=== PATIENT | male | born 1960 | race Caucasian/White ===

== ENCOUNTER 2017-01-17 13:54 | Inpatient (IN) | payer OTHER ==
[~2017-01-17] VITALS: Ht 175.2 cm; Wt 90.9 kg
[~2017-01-17 13:54] MED LIST: HYDROXYZINE PAM50 MG PO; ONDANSETRON HYDR4 M1 PO; PRILOSEC20 MG PO; THERA1 TAB PO; TYLENOL500 MG PO; VITAMIN B-11 TAB PO
[2017-01-17 15:44] VITALS: BP 148/97
--- NOTE | 2017-01-17 16:00 | NUR ---
A 56, admitted to 5E, under the services of SUJEY Barbosa DO with a diagnosis of ALCOHOL WITHDRAWAL. Chief complaint is ALCOHOL WITHDRAWAL. Patient arrived via wheel chair from [place]. Monitor applied. Initial assessment completed. Vital signs taken and recorded. SUJEY BARBOSA DO notified of admission to the unit. Orders received. See assessment for past medical history, medications and allergies. Patient and/or family oriented to unit. [address] visitation policy reviewed. Clothing/patient valuable form completed. MARYANA BROWER
[2017-01-17] MEDS ORDERED: COZAAR100 MG PO (16:24)
[2017-01-17] MEDS ORDERED: NORVASC5 MG PO (16:24)
[2017-01-17 17:24] LABS: BASO % 0.6 % (0.0-1.0); EOS # 0.1 10*3/uL (0.0-0.4); EOS % 2.1 % (1.0-4.0); HEMATOCRIT 39.4 % (42.0-52.0); HEMOGLOBIN 13.6 g/dl (14.0-18.0); LYMPH # 2.6 10*3/uL (1.3-4.4); MEAN CELL VOLUME 88.3 fl (80.0-94.0); MEAN CORPUSCULAR HGB 30.5 pg (27.0-31.0); MEAN CORPUSCULAR HGB CONC 34.5 g/dl (33.0-37.0); MONO # 0.4 10*3/uL (0.1-1.0); MONO % 6.8 % (3.0-9.0); NEUT % 48.2 % (47.0-73.0); PLATELET COUNT AUTOMATED 298 10*3/uL (130-400); RED BLOOD COUNT 4.46 10*6/uL (4.50-5.90); RED CELL DISTRI WIDTH 12.9 % (0-14.5); WHITE BLOOD COUNT 6.3 10*3/uL (4.8-10.8)
[2017-01-17 17:31] LABS: INTERNATIONAL NORM RATIO 0.9 (2.0-3.5)
[2017-01-17 17:39] LABS: ALBUMIN 3.8 gm/dl (3.1-4.5); ALKALINE PHOSPHATASE 75 U/L (45-117); BUN 7 mg/dl (7-24); CHLORIDE 96 mmol/L (98-107); CREATININE 0.77 mg/dL (0.70-1.30); POTASSIUM 4.2 mmol/L (3.5-5.1); SGOT/AST 53 IU/L (3-35); SGPT/ALT 62 U/L (12-78); SODIUM 131 mmol/L (136-145); TOTAL PROTEIN 7.8 gm/dL (6.4-8.2)
[2017-01-17 17:45] LABS: BILIRUBIN NEGATIVE (NEGATIVE); BLOOD NEGATIVE (NEGATIVE); CLARITY CLEAR (CLEAR); COLOR YELLOW (YELLOW); GLUCOSE NEGATIVE (NEGATIVE); KETONE NEGATIVE (NEGATIVE); LEUKO ESTERASE NEGATIVE (NEGATIVE); NITRITE NEGATIVE (NEGATIVE); SPECIFIC GRAVITY <= 1.005 (1.005-1.030); UROBILINOGEN 0.2 E.U./dl (0.2-1.0)
[2017-01-17 17:53] LABS: URINE AMPHETAMINES < 1000 (1000ng/ml); URINE BARBITURATES < 200 (200ng/ml); URINE BENZODIAZEPINES < 200 (200ng/ml); URINE CANNABINOIDS (THC) < 50 (50ng/ml); URINE COCAINE < 300 (300ng/ml); URINE METHADONE < 300 (300ng/ml); URINE OPIATES < 300 (300ng/ml)
[2017-01-17 18:00] LABS: URINE PHENCYCLIDINE < 25 (25ng/ml)
[2017-01-17 18:04] LABS: EPITHELIAL CELLS 0-2; WBC 0-2 wbc/hpf (0-5)
--- NOTE | 2017-01-17 21:01 | NUR ---
PATIENT MEDICATED WITH ZOFRAN FOR COMPLAINTS OF NAUSEA. WILL MONITOR FOR EFFECTIVENESS. CALL LIGHT IN REACH.
[2017-01-17 21:41] VITALS: BP 145/89
--- NOTE | 2017-01-17 22:54 | NUR ---
MEDICATED WITH ATIVAN 2MG IV FOR COMPLAINTS OF TREMORS. WILL MONITOR FOR EFFECTIVENESS. ZOFRAN FROM EARLIER EFFECTIVE AT THIS TIME. WILL CONTINUE TO MONITOR. CALL LIGHT IN REACH.
--- NOTE | 2017-01-17 23:30 | NUR ---
ATIVAN EFFECTIVE AT THIS TIME.
[2017-01-18] VITALS: BP 138/69
--- NOTE | 2017-01-18 06:29 | NUR ---
MEDICATED WITH ZOFRAN FOR COMPLAINTS OF NAUSEA AND ATIVAN 2MG FOR COMPLAINTS OF TREMORS. WILL MONITOR FOR EFFECTIVENESS. CALL LIGHT IN REACH.
[2017-01-18 08:00] VITALS: BP 138/92
--- NOTE | 2017-01-18 08:37 | NUR ---
Medicated with vistaril per prn order for complaints of anxiety.
--- NOTE | 2017-01-18 08:55 | NUR ---
Dr. Husain notified that pt has home meds for HTN that were not continued on admission.
--- NOTE | 2017-01-18 09:30 | NUR ---
States that vistaril effective.
--- NOTE | 2017-01-18 12:48 | NUR ---
Tylenol and bentyl given per prn order for complaints of back discomfort and abdominal cramping.
--- NOTE | 2017-01-18 13:19 | NUR ---
States medication given ealier was effective but states that he is experiencing tremors and the shakes. Tremors noted. Medicated with IV ativan at this time.
--- NOTE | 2017-01-18 14:15 | NUR ---
States that iv ativan effective.
[2017-01-18 16:00] VITALS: BP 141/95
--- NOTE | 2017-01-18 16:12 | NUR ---
D/C PLAN: PATIENT HAS AN APPOINTMENT WITH [facility] IN [place] FOR THE VIVITROL SHOT. PATIENT AGREES AND UNDERSTANDS HIS AFTERCARE PLAN. PATIENT WAS GIVEN A COPY OF HIS REFERRAL SHEET WITH APPOINTMENT ALONG WITH HIS [place] DISCHARGE PACKET. CORKY CROSS B.A. ORTHOPEDICS NURSE
--- NOTE | 2017-01-18 19:29 | NUR ---
BENTYL GIVEN FOR COMPLAINTS OF ABDOMINAL CRAMPING. WILL MONITOR FOR EFFECTIVENESS.
[2017-01-18 20:00] VITALS: BP 133/85
--- NOTE | 2017-01-18 20:15 | NUR ---
PATIENT ARRIVED TO FLOOR. ORIENTED TO ROOM AND POSITIONED FOR COMFORT. CYTOPATHOLOGIST PUT ON PATIENT. WILL CONTINUE TO MONITOR. CALL LIGHT IN REACH.
--- NOTE | 2017-01-18 20:36 | NUR ---
ATIVAN 2MG IV GIVEN FOR COMPLAINTS OF TREMORS. WILL MONITOR FOR EFFECTIVENESS. CALL LIGHT IN REACH.
--- NOTE | 2017-01-18 20:38 | NUR ---
BENTYL AND ATIVAN EFFECTIVE AT THIS TIME. PATIENT IN ROOM WATCHING TV. WILL CONTINUE TO MONITOR. CALL LIGHT IN REACH.
[2017-01-19] VITALS: BP 121/88
--- NOTE | 2017-01-19 03:12 | NUR ---
AVEL GIVEN FOR COMPLAINTS OF ABDOMINAL CRAMPING. PATIENT REQUESTING TO GET A SHOWER SO DR. HERRERA GAVE ORDER TO REMOVE MONITOR TO GET A SHOWER. WILL CONTINUE TO MONITOR.
--- NOTE | 2017-01-19 03:50 | NUR ---
AVEL EFFECTIVE AT THIS TIME. MONITOR REAPPLIED TO PATIENT. PATIENT FEELING MUCH BETTER AFTER SHOWER. CALL LIGHT IN REACH.
[2017-01-19 06:27] LABS: BASO % 0.6 % (0.0-1.0); EOS # 0.1 10*3/uL (0.0-0.4); EOS % 1.6 % (1.0-4.0); HEMATOCRIT 41.7 % (42.0-52.0); HEMOGLOBIN 13.8 g/dl (14.0-18.0); LYMPH # 1.6 10*3/uL (1.3-4.4); LYMPH % 23.2 % (27.0-41.0); MEAN CORPUSCULAR HGB 30.6 pg (27.0-31.0); MEAN CORPUSCULAR HGB CONC 33.1 g/dl (33.0-37.0); MEAN PLATELET VOLUME 9.7 fl (9.6-12.3); MONO # 0.6 10*3/uL (0.1-1.0); MONO % 8.3 % (3.0-9.0); NEUT # 4.5 10*3/uL (2.3-7.9); NEUT % 65.9 % (47.0-73.0); PLATELET COUNT AUTOMATED 264 10*3/uL (130-400); RED BLOOD COUNT 4.51 10*6/uL (4.50-5.90); RED CELL DISTRI WIDTH 13.2 % (0-14.5); WHITE BLOOD COUNT 6.8 10*3/uL (4.8-10.8)
[2017-01-19 06:28] LABS: MEAN CELL VOLUME 92.5 fl (80.0-94.0)
[2017-01-19 06:53] LABS: CREATININE 1.17 mg/dL (0.70-1.30)
--- NOTE | 2017-01-19 07:40 | NUR ---
PATIENT RESTING COMFORTABLY IN BED. PATIENT REPORTS JUST GETTING A SHOWER AND FEELING MUCH BETTER. PATIENT REPORTS FEELING HAND TREMORS BUT DENIES ANY OTHER S&S OF DT'S. PATIENT IS A&OX3. PATIENT IS AMBULATORY. CALL LIGHT WITHIN REACH. NO FURTHER REQUESTS AT THIS TIME. HOB ELEVATED. SEE ASSESSMENT
[2017-01-19 08:00] VITALS: BP 124/90
--- NOTE | 2017-01-19 09:00 | NUR ---
DR. HEATON IN TO SEE PATIENT AND DISCUSS POSSIBLE DISCHARGE FOR TOMORROW.
[2017-01-19] MEDS ORDERED: METHOCARBAMOL750 M1 PO (11:53)
[2017-01-19] MEDS ORDERED: ATARAX,VISTARIL50 MG PO (11:53)
[2017-01-19] MEDS ORDERED: ZOFRAN 4 MG ED2 TAB PO (11:53)
[2017-01-19 12:00] VITALS: BP 154/94
--- NOTE | 2017-01-19 13:19 | NUR ---
PATIENT IS SITTING IN THE BEDSIDE CHAIR. PATIENT AMBULATES UP AND DOWN THE HALLWAYS TOLERATED. PATIENT IS A&OX3. PATIENT DENIES ANY PAIN OR DISCOMFORT AT THIS TIME. PATIENT IS MONITORED AND HAS HAD A FEW EPISODES OF TACHYCARDIA BUT IS ASYMPTOMATIC. PATIENT DENIES ANY SOB OR DIZZINESS UPON STANDING. CALL LIGHT IS WITHIN REACH. SEE ASSESSMENT.
--- NOTE | 2017-01-19 15:39 | NUR ---
PATIENT GIVEN 2MG IMMODIUM FOR 1 EPISODE OF LOOSE STOOLS POST INITIAL DOSE. WILL CONTINUE TO MONITOR.
--- NOTE | 2017-01-19 15:41 | NUR ---
PATIENT GIVEN SCHEDULED ATIVAN. PATIENT REPORTS FEELING RESTLESS, BUT DENIES ANY OTHER S&S OF DT'S. WILL CONTINUE TO MONITOR.
--- NOTE | 2017-01-19 15:42 | NUR ---
PATIENT GIVEN BENTYL FOR ABDOMINAL PAIN RATED 5/10. PATIENT DESCRIBES THE PAIN CRAMPING AND LOCATEDIN THE LUQ AND LLQ.
[2017-01-19 16:00] VITALS: BP 155/109
--- NOTE | 2017-01-19 16:42 | NUR ---
PATIENT REPORTS AN IMPROVEMENT IN ABDOMINAL PAIN NOW RATED A 2/10. CALL LIGHT I REACH. WILL CONTINUE TO MONITOR.
--- NOTE | 2017-01-19 19:36 | NUR ---
MEDICATED WITH TYLENOL FOR COMPLAINTS OF A HEADACHE. WILL MONITOR FOR EFFECTIVENESS. CALL LIGHT IN REACH.
[2017-01-19 20:00] VITALS: BP 144/88
--- NOTE | 2017-01-19 22:01 | NUR ---
TYLENOL EFFECTIVE AT THIS TIME. DENIES COMPLAINTS OF PAIN OR DISCOMFORT. RESTING IN BED WATCHING TV AT THIS TIME. WILL CONTINUE TO MONITOR. CALL LIGHT IN REACH.
[2017-01-20] VITALS: BP 150/90
--- NOTE | 2017-01-20 00:12 | NUR ---
HEP LOCK REMOVED FROM RIGHT ARM D/T PATIENT REQUEST AND BEING DISCHARGED IN THE AM.
--- NOTE | 2017-01-20 05:44 | NUR ---
MEDICATED WITH TYLENOL FOR COMPLAINTS OF A HEADACHE. WILL MONITOR FOR EFFECTIVENESS. CALL LIGHT IN REACH.
--- NOTE | 2017-01-20 06:23 | NUR ---
PATIENT TAKEN OFF MONITOR TO GET A SHOWER. DENIES COMPLAINTS OF PAIN OR DISCOMFORT AT THIS TIME. WILL CONTINUE TO MONITOR. CALL LIGHT IN REACH.
[2017-01-20 08:00] VITALS: BP 144/92
--- NOTE | 2017-01-20 08:12 | NUR ---
RESTING AT SIDE OF BED, EASY RESPIRATIONS WITH SKIN W/D. BP ELEVATED, AM MEDS GIVEN EARLY AT PTS REQUEST. DENIES C/O CHEST PAIN. SEE SHIFT ASSESSMENT.
--- NOTE | 2017-01-20 10:05 | NUR ---
Patient discharged in stable condition, referral letter provided to patient with specific instructions and appointment for ongoing treatment. Patient verbalizes understanding of discharge plan.
== END 2017-01-20 10:05 | disposition home or self-care (01) | DRG 897 ==
LOC: 5E 13:54
PROVIDERS: Hospitalist; ADMIT Emergency Medicine
DX: F10.239 Alcohol dependence with withdrawal, unspecified (principal); I10 Essential (primary) hypertension; K21.9 Gastro-esophageal reflux disease without esophagitis; Z71.6 Tobacco abuse counseling; Z72.0 Tobacco use

== ENCOUNTER 2017-07-26 13:27 | Inpatient (IN) | payer OTHER ==
[~2017-07-26] VITALS: Ht 6187 cm; Wt 2.5 kg
[~2017-07-26 13:27] MED LIST changes: +ATARAX,VISTARIL50 MG PO; +COZAAR100 MG PO; +METHOCARBAMOL750 M1 PO; +NORVASC5 MG PO; +ZOFRAN 4 MG ED2 TAB PO
[2017-07-26 14:45] VITALS: BP 114/77
[2017-07-26] MEDS ORDERED: ALFUZOSIN HCL E10 MG PO (14:54)
[2017-07-26 15:05] LABS: BASO % 0.5 % (0.0-1.0); EOS # 0.2 10*3/uL (0.0-0.4); EOS % 1.9 % (1.0-4.0); HEMATOCRIT 43.6 % (42.0-52.0); HEMOGLOBIN 14.4 g/dl (14.0-18.0); LYMPH # 2.6 10*3/uL (1.3-4.4); LYMPH % 32.5 % (27.0-41.0); MEAN CELL VOLUME 88.4 fl (80.0-94.0); MEAN CORPUSCULAR HGB 29.2 pg (27.0-31.0); MONO # 0.7 10*3/uL (0.1-1.0); MONO % 8.2 % (3.0-9.0); NEUT # 4.6 10*3/uL (2.3-7.9); NEUT % 56.5 % (47.0-73.0); PLATELET COUNT AUTOMATED 243 10*3/uL (130-400); RED BLOOD COUNT 4.93 10*6/uL (4.50-5.90); RED CELL DISTRI WIDTH 13.9 % (0-14.5); WHITE BLOOD COUNT 8.1 10*3/uL (4.8-10.8)
[2017-07-26 15:12] LABS: INTERNATIONAL NORM RATIO 0.9 (2.0-3.5)
[2017-07-26 15:21] LABS: ALBUMIN 4.3 gm/dl (3.1-4.5); ALKALINE PHOSPHATASE 88 U/L (45-117); BUN 11 mg/dl (7-24); CHLORIDE 100 mmol/L (98-107); CREATININE 0.94 mg/dL (0.70-1.30); POTASSIUM 4.4 mmol/L (3.5-5.1); SGOT/AST 33 IU/L (3-35); SODIUM 135 mmol/L (136-145)
[2017-07-26 15:25] LABS: SGPT/ALT 38 U/L (12-78)
[2017-07-26 15:44] LABS: BILIRUBIN NEGATIVE (NEGATIVE); BLOOD NEGATIVE (NEGATIVE); CLARITY CLEAR (CLEAR); COLOR YELLOW (YELLOW); GLUCOSE NEGATIVE (NEGATIVE); KETONE NEGATIVE (NEGATIVE); LEUKO ESTERASE NEGATIVE (NEGATIVE); NITRITE NEGATIVE (NEGATIVE); SPECIFIC GRAVITY <= 1.005 (1.005-1.030); UROBILINOGEN 0.2 E.U./dl (0.2-1.0)
[2017-07-26 15:49] LABS: BACTERIA TRACE; EPITHELIAL CELLS 0-2; RBC 0-2 rbc/hpf (0-2); WBC 0-2 wbc/hpf (0-5)
[2017-07-26 15:52] LABS: URINE AMPHETAMINES < 1000 (1000ng/ml); URINE BARBITURATES < 200 (200ng/ml); URINE BENZODIAZEPINES < 200 (200ng/ml); URINE CANNABINOIDS (THC) < 50 (50ng/ml); URINE COCAINE < 300 (300ng/ml); URINE METHADONE < 300 (300ng/ml); URINE OPIATES < 300 (300ng/ml); URINE PHENCYCLIDINE < 25 (25ng/ml)
[2017-07-26 16:00] VITALS: BP 152/69
[2017-07-26 20:00] VITALS: BP 120/62
[2017-07-27] VITALS: BP 127/84
[2017-07-27 04:00] VITALS: BP 130/80
[2017-07-27 08:00] VITALS: BP 146/95
[2017-07-27 12:00] VITALS: BP 132/84
[2017-07-27 16:00] VITALS: BP 143/93
[2017-07-27 20:00] VITALS: BP 134/94
[2017-07-28] VITALS: BP 144/94
[2017-07-28 06:23] LABS: BUN 11 mg/dl (7-24); CHLORIDE 104 mmol/L (98-107); SODIUM 138 mmol/L (136-145)
[2017-07-28 06:25] LABS: CREATININE 1.03 mg/dL (0.70-1.30); PHOSPHOROUS 3.4 mg/dL (2.5-4.9)
[2017-07-28 08:00] VITALS: BP 147/100
[2017-07-28 12:00] VITALS: BP 161/99
== END 2017-07-28 12:42 | disposition home or self-care (01) | DRG 536 ==
LOC: 5E 13:27
PROVIDERS: Internal Medicine Hospice and Palliative Medicine; Student in an Organized Health Care Education/Training Program
DX: S72.051A Unspecified fracture of head of right femur, initial encounter for closed fracture (principal); E87.1 Hypo-osmolality and hyponatremia; F10.129 Alcohol abuse with intoxication, unspecified; F41.9 Anxiety disorder, unspecified; R07.81 Pleurodynia; K21.9 Gastro-esophageal reflux disease without esophagitis; X58.XXXA Exposure to other specified factors, initial encounter; F17.210 Nicotine dependence, cigarettes, uncomplicated; I10 Essential (primary) hypertension; N40.0 Benign prostatic hyperplasia without lower urinary tract symptoms; Z71.6 Tobacco abuse counseling; Z90.5 Acquired absence of kidney; Z82.3 Family history of stroke; Z82.49 Family history of ischemic heart disease and other diseases of the circulatory system; Z79.899 Other long term (current) drug therapy; Z88.0 Allergy status to penicillin; Y93.89 Activity, other specified; Y92.89 Other specified places as the place of occurrence of the external cause; Y99.8 Other external cause status